=== PATIENT | male | born 1965 | race Caucasian/White ===

== ENCOUNTER → 2017-01-08 | Outpatient (CLI) | payer OTHER ==
[~2017-01-08] VITALS: Ht 182.9 cm; Wt 83.9 kg
[~2017-01-08] MED LIST: CYCLOBENZAPRINE TP; MULTIPLE VITAM1 EACH PO; OMEGA 3-6-9 CO1 EACH PO; PERCOCET 5/31 TABLET PO; POTASSIUM-9999 MG PO
== END | disposition home or self-care (01) ==
LOC: AMB 08:59
DX: Z08 Encounter for follow-up examination after completed treatment for malignant neoplasm (principal); Z85.048 Personal history of other malignant neoplasm of rectum, rectosigmoid junction, and anus; D12.5 Benign neoplasm of sigmoid colon; K64.8 Other hemorrhoids; Z90.49 Acquired absence of other specified parts of digestive tract; Z80.3 Family history of malignant neoplasm of breast; Z87.891 Personal history of nicotine dependence; G89.29 Other chronic pain; M54.9 Dorsalgia, unspecified
CPT/HCPCS: 88305; J2250; J3010